=== PATIENT | male | born 1975 | race Caucasian/White ===

== ENCOUNTER 2021-05-09 09:02 | Outpatient (REF) | payer BC, SELFPAY ==
--- NOTE | ~2021-05-09 | XR_ITS ---
EXAMINATION: XR SHOULDER, RIGHT CLINICAL INFORMATION: Question AC separation COMPARISON: None TECHNIQUE: AP external rotation, Grashey, scapular Y, and axillary views of the right shoulder. FINDINGS: The bones and soft tissues are normal. No fracture. Glenohumeral and acromioclavicular alignment is anatomic with normal joint space. No abnormal soft tissue calcifications. XR/XR shoulder RT min 2V IMPRESSION: Normal right shoulder. If there is clinical suspicion of AC separation, weightbearing views may be helpful.
== END 2021-05-09 09:03 | disposition home or self-care (01) ==
LOC: HO.XRAY 09:02
PROVIDERS: PCP Internal Medicine; Visit Provider Internal Medicine
DX: M25.511 Pain in right shoulder (principal)
CPT/HCPCS: 73030

== ENCOUNTER 2021-05-23 07:39 | Outpatient (REF) | payer BC, SELFPAY ==
--- NOTE | ~2021-05-23 | XR_ITS ---
EXAMINATION: XR ACROMIOCLAVICULAR JOINTS CLINICAL INFORMATION: Right shoulder pain COMPARISON: Previous right shoulder x-ray 05/09/2021 TECHNIQUE: AP and cephalad angulated AP views of the acromioclavicular joints. FINDINGS: The acromioclavicular joints are normal-appearing with and without weights. Soft tissues are normal. XR/XR AC joint BI IMPRESSION: Normal acromioclavicular joints.
== END 2021-05-23 07:40 | disposition home or self-care (01) ==
LOC: HO.XRAY 07:39
PROVIDERS: PCP Internal Medicine; Visit Provider Internal Medicine
DX: M25.511 Pain in right shoulder (principal)
CPT/HCPCS: 73050

== ENCOUNTER → 2021-06-26 09:52 | Outpatient (BNVA) | payer BC, SELFPAY | PROVIDERS: Visit Provider Physician Assistant ==

== ENCOUNTER 2021-08-12 16:06 | Outpatient (REF) | payer OTHER, BC, SELFPAY ==
--- NOTE | ~2021-08-12 | XR_ITS ---
EXAMINATION: XR CERVICAL SPINE CLINICAL INFORMATION: Neck injury COMPARISON: None TECHNIQUE: 3 views of the cervical spine were obtained. FINDINGS: No acute fracture or subluxation. There is loss of the normal cervical lordosis. Vertebral body height and alignment otherwise maintained. Mild disc space narrowing at C4-C5, C5-C6, and C6-C7 with small endplate osteophytes. The atlantoaxial joint is well aligned. The dens is intact. The prevertebral soft tissues are unremarkable. XR/XR cervical spine 3V IMPRESSION: Mild degenerative changes of the mid to lower cervical spine.
== END 2021-08-12 16:07 | disposition home or self-care (01) ==
LOC: HO.HMGCX 16:06
PROVIDERS: PCP Internal Medicine; Visit Provider Internal Medicine
DX: M54.2 Cervicalgia (principal)
CPT/HCPCS: 72040